=== PATIENT | male | born 1965 | race Caucasian/White ===

== ENCOUNTER 2018-10-20 19:12 | Emergency (ER) | payer BC ==
[2018-10-20] MEDS: LORAZEPAM 1 MG TAB PO (20:57)
== END 2018-10-21 01:58 | disposition home or self-care (01) ==
LOC: FTE 10-21 01:58
DX: F41.9 Anxiety disorder, unspecified (principal); F14.90 Cocaine use, unspecified, uncomplicated; F17.210 Nicotine dependence, cigarettes, uncomplicated
CPT/HCPCS: 82962; 93005; 99283